=== PATIENT | male | born 1985 | race Caucasian/White ===

== ENCOUNTER 2020-05-18 13:19 | Emergency (ER) | payer OTHER ==
[2020-05-18] MEDS ORDERED: Ondansetron PF 4 MG/2 ML Vial ONE (13:44)
[2020-05-18 13:52] LABS: #Basophils 0.1 thou/uL (0.0-0.2); #Monocytes 0.5 thou/uL (0.11-0.59); #Neutrophils 1.6 thou/uL (1.40-6.50); %Basophils 1.4 % (0.0-1.0); %Eosinophils 0.9 % (0.0-10.0); %Lymphocytes 47.7 % (21.0-51.0); %Monocytes 11.8 % (0.0-10.0); %Neutrophils 38.3 % (42.0-75.0); Hemoglobin 14.1 g/dL (14.0-18.0); Mean Corpuscular HGB CONC 33.3 g/dL (32.0-36.0); Mean Corpuscular Hemoglobin 31.1 pg (27.0-31.0); Mean Corpuscular Volume 93.6 fL (78.0-98.0); Mean Platelet Volume 10.1 fL (7.4-10.4); Platelet Count 179 thou/uL (130-400); RBC Distribution Width 11.2 % (11.5-14.5); Red Blood Cell (RBC) Count 4.53 mill/uL (4.70-6.10); White Blood Cell (WBC) Count 4.2 thou/uL (4.8-10.8)
[2020-05-18 14:08] LABS: ALT (SGPT) 13 U/L (8-55); AST (SGOT) 23 U/L (5-34); Alkaline Phosphatase 47 U/L (40-110); Anion Gap 15 mmol/L (10-20); BUN (Urea Nitrogen) 8 mg/dL (8.9-20.6); Bilirubin, Total 0.4 mg/dL (0.2-1.2); CK (CPK) 358 U/L (30-200); Calc. Creatinine Clearance 0 mL/min (70-130); Calcium 9.2 mg/dL (7.8-10.44); Carbon Dioxide 27 mmol/L (22-29); Chloride 105 mmol/L (98-107); Globulin 3.2 g/dL (2.4-3.5); Glucose 104 mg/dL (70-105); Potassium 4.5 mmol/L (3.5-5.1); Protein, Total 7.2 g/dL (6.0-8.3); Sodium 142 mmol/L (136-145)
--- NOTE | 2020-05-18 14:09 | RAD ---
AP CHEST: History: Chest pain. FINDINGS: Lungs are clear. Heart and mediastinum unremarkable with normal appearing vascular markings. IMPRESSION: No acute findings. POS: [facility]
[2020-05-18] MEDS ORDERED: Sodium Chloride 0.9% 1,000 ML ONE (14:42)
[2020-05-20 08:44] LABS: SARS-CoV-2 by NAA Indeterminate (NotDetected)
== END 2020-05-18 18:30 ==
LOC: NAV ERS 13:19
DX: M62.82 Rhabdomyolysis (principal); R07.9 Chest pain, unspecified; Z20.828 Contact with and (suspected) exposure to other viral communicable diseases; J45.909 Unspecified asthma, uncomplicated; G40.A09 Absence epileptic syndrome, not intractable, without status epilepticus
CPT/HCPCS: 36415; 71045; 80053; 82550; 84484; 85025; 87635; 93005; J2405; J7050; U0003